=== PATIENT | male | born 1975 | race Caucasian/White ===

== ENCOUNTER 2016-06-27 02:33 | Emergency (ER) | payer SELFPAY ==
[~2016-06-27] VITALS: Ht 193 cm; Wt 109.1 kg
[2016-06-27 02:37] VITALS: Ht 193 cm; Wt 109.1 kg
[2016-06-27] MEDS ORDERED: DIPHTH/TET/ACEL PERTUSS (ADULT) 0.5 ML VIAL IM* ONE (03:00)
[2016-06-27] MEDS ORDERED: LIDOCAINE 1%/EPI (MDV) 20 ML INJ INJ ONE (03:00)
[2016-06-27] MEDS ORDERED: morphine 10 MG INJ IM ONE (03:00)
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
[2016-06-27] MEDS ORDERED: LIDOCAINE 1%/EPI 30 ML INJ ONE (03:17)
--- NOTE | 2016-06-27 03:22 | RADRPT ---
PROCEDURE: Noncontrast CT Head. CLINICAL INDICATION: Pain. TECHNIQUE: Noncontrast CT of the head was obtained. The administered radiation dose was CTDI vol = 41 mGy, DLP = 900.3 mGy-cm. COMPARISON: No pertinent prior examinations were submitted for comparison. FINDINGS: The ventricles and sulci are within normal limits. There is no acute intracranial hemorrhage or ext ra-axial fluid collection. There is no mass effect. No midline shift is identified. There is no loss of huynh-white differentiation to suggest acute infarction. The calvarium and skull base are grossly intact. Please refer to the CT scan of the facial bones. IMPRESSION: No acute findings. RPTAT: HIKT .Suleiman Wu MD, MD Date Time Electronically viewed and signed by .Suleiman Wu MD, MD on 06/27/2016 03:21 .T/
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
[2016-06-27] MEDS ORDERED: IBUP800T25 PO (03:49)
[2016-06-27] MEDS ORDERED: HYDR-906 PO (03:49)
[2016-06-27 05:20] VITALS: BP 137/90; PULSE 92; RESP 18; TEMP 98.6
== END 2016-06-27 05:23 | disposition home or self-care (01) ==
LOC: E/R 02:33
DX: S01.01XA Laceration without foreign body of scalp, initial encounter (principal); S40.012A Contusion of left shoulder, initial encounter; V49.40XA Driver injured in collision with unspecified motor vehicles in traffic accident, initial encounter; Z23 Encounter for immunization
CPT/HCPCS: 12014; 70450; 70486; 72125; 73030; 73610; 90471; 90715; 96372; 99285; J2270